=== PATIENT | male | born 1970 | race Caucasian/White ===

== ENCOUNTER 2018-08-11 09:10 | Emergency (ER) | payer OTHER ==
[~2018-08-11] VITALS: Wt 124.7 kg
[2018-08-11 09:13] VITALS: BP 135/92
[2018-08-11 10:16] LABS: BASO % 0.3 % (0.0-1.0); EOS # 0.2 10*3/uL (0.0-0.4); EOS % 2.2 % (1.0-4.0); HEMATOCRIT 48.3 % (42.0-52.0); LYMPH % 30.4 % (27.0-41.0); MEAN CORPUSCULAR HGB 30.1 pg (27.0-31.0); MEAN CORPUSCULAR HGB CONC 33.1 g/dl (33.0-37.0); MEAN PLATELET VOLUME 11.6 fl (9.6-12.3); MONO % 9.9 % (3.0-9.0); NEUT # 5.5 10*3/uL (2.3-7.9); NEUT % 56.8 % (47.0-73.0); PLATELET COUNT AUTOMATED 186 10*3/uL (130-400); RED BLOOD COUNT 5.31 10*6/uL (4.50-5.90); RED CELL DISTRI WIDTH 14.5 % (0-14.5); WHITE BLOOD COUNT 9.7 10*3/uL (4.8-10.8)
[2018-08-11 10:30] LABS: ALBUMIN 3.9 gm/dl (3.1-4.5); ALKALINE PHOSPHATASE 83 U/L (45-117); BUN 21 mg/dl (7-24); CHLORIDE 110 mmol/L (98-107); CREATININE 1.04 mg/dL (0.70-1.30); SGOT/AST 17 IU/L (3-35); SGPT/ALT 31 U/L (12-78); SODIUM 141 mmol/L (136-145); TOTAL PROTEIN 7.3 gm/dL (6.4-8.2)
[2018-08-11] MEDS ORDERED: PREDNISONE20 M1 PO (11:53)
[2018-08-11] MEDS ORDERED: SEPTDS PO (11:53)
[2018-08-11] MEDS ORDERED: AUGMENTIN 875875 MG PO (11:53)
== END 2018-08-11 12:12 | disposition home or self-care (01) ==
LOC: ED 09:10
PROVIDERS: Physician Assistant
DX: L03.213 Periorbital cellulitis (principal); H00.011 Hordeolum externum right upper eyelid; L23.7 Allergic contact dermatitis due to plants, except food; F10.10 Alcohol abuse, uncomplicated

== ENCOUNTER → 2019-04-18 | Outpatient (CLI) | payer OTHER ==
[~2019-04-18] MED LIST: AUGMENTIN 875875 MG PO; PREDNISONE20 M1 PO; SEPTDS PO
== END | disposition home or self-care (01) ==
LOC: RAD 11:48
DX: S39.012A Strain of muscle, fascia and tendon of lower back, initial encounter (principal); M85.88 Other specified disorders of bone density and structure, other site; M51.37 Other intervertebral disc degeneration, lumbosacral region; X58.XXXA Exposure to other specified factors, initial encounter; Y93.89 Activity, other specified; Y92.89 Other specified places as the place of occurrence of the external cause; Y99.8 Other external cause status